=== PATIENT | female | born 1985 | race Caucasian/White ===

== ENCOUNTER 2017-05-26 18:42 | Inpatient (IN) | payer BC ==
[~2017-05-26 18:42] MED LIST: Bupivacaine 0.25% 10 ML SDV ONE
[2017-05-26] MEDS ORDERED: Ondansetron 4 MG/2 ML SDV IVPUSH PRN (18:54)
[2017-05-26] MEDS ORDERED: Nalbuphine 20 MG/1 ML Amp IVPUSH PRN (18:54)
[2017-05-26] MEDS ORDERED: Sodium Chloride 0.9% 10 ML Syringe FLUSH PRN (18:54)
[2017-05-26] MEDS ORDERED: Lidocaine 1% 50 ML MDV INJECT ONE (18:54)
[2017-05-26] MEDS: Lactated Ringers 1,000 ML IV SCH ×2 (19:00→20:03)
[2017-05-26] MEDS ORDERED: Oxytocin/Lactated Ringers 10 UNIT/1,000 ML BAG IV SCH (19:00)
--- NOTE | 2017-05-26 19:23 | PCM.LDHP ---
L&D History of Present Illness - General Date of Service: 05/26/17 Admit Problem/Dx: Patient Status Order with Admit Dx/Problem 05/26/17 18:54 Patient Status [ADT] Routine Admission Diagnosis/Problem Admission Diagnosis/Problem Labor without complication Source of Information: Patient History Limitations: Reports: No Limitations - History of Present Illness Introduction:: 31 year old at 38w4d here in active labor. Started contraction this afternoon. Presented and was 8 cm. 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 Endocrine/Metabolic History: Reports: Hyperthyroidism - Infectious Disease History Infectious Disease History: Reports: Chicken Pox H&P Review of Systems - Review of Systems: Review Of Systems: See Below General: Reports: No Symptoms HEENT: Reports: No Symptoms Pulmonary: Reports: No Symptoms Cardiovascular: Reports: No Symptoms Gastrointestinal: Reports: No Symptoms Genitourinary: Reports: No Symptoms Musculoskeletal: Reports: No Symptoms Skin: Reports: No Symptoms Psychiatric: Reports: No Symptoms Neurological: Reports: No Symptoms Hematologic/Lymphatic: Reports: No Symptoms Immunologic: Reports: No Symptoms L&D Exam - Exam Exam: See Below - Vital Signs Weight: 73.936 kg - OB Specific Contraction Intensity: Moderate to Strong Movement: Active Heart Rate (FHR) Variability: Moderate (6-25 bmp) Presentation: Vertex - Eagle Score Eagle Score Cervix Position: Anterior Eagle Score Consistency: Soft Eagle Score Effacement: >80% Eagle Score Dilation: > 5 cm Eagle Score Infant's Station: -2 Eagle Score Total: 11 - Exam General: Alert, Oriented HEENT: PERRLA, Conjunctiva Clear, EACs Clear, EOMI, Hearing Intact, Mucosa Moist & [place], Nares Patent, Normal Nasal Septum, Posterior Pharynx Clear, TMs Clear Neck: Supple, Trachea Midline Lungs: Clear to Auscultation, Normal Respiratory Effort Cardiovascular: Regular Rate, Regular Rhythm GI/Abdominal Exam: Normal Bowel Sounds, Soft, Non-Tender, No Organomegaly, No Distention, No Abnormal Bruit, No Mass, Pelvis Stable Genitourinary: Normal external exam, Normal bimanual exam Back Exam: Normal Inspection, Full Range of Motion Extremities: Normal Inspection, Normal Range of Motion, Non-Tender, No Pedal Edema, Normal Capillary Refill Skin: Warm, Dry, Intact Neurological: Cranial Nerves Intact, Reflexes Equal Bilateral Psychiatric: Alert, Normal Affect, Normal Mood Problem List Initiated/Reviewed/Updated: Yes Orders Last 24hrs: Active Orders 24 hr Category Date Time Status Patient Status [ADT] Routine ADT 05/26/17 18:54 Active Activity as Tolerated [RC] PFP Care 05/26/17 18:54 Active Communication Order [RC] ASDIRECTED Care 05/26/17 18:54 Active Heart Tones [RC] ASDIRECTED Care 05/26/17 18:55 Active Notify Provider [RC] PFP Care 05/26/17 18:54 Active Notify Provider [RC] PRN Care 05/26/17 18:54 Active Peripheral IV Care [RC] . DIRECTED Care 05/26/17 18:55 Active Pump Management, Intrathecal [RC] ASDIRECTED Care 05/26/17 18:56 Active Urinary Catheter Assessment [RC] ASDIRECTED Care 05/26/17 18:54 Active Vital Signs [RC] PER UNIT ROUTINE Care 05/26/17 18:54 Active Regular Diet [DIET] Diet 05/26/17 Dinner Active CBC WITH AUTO DIFF [HEME] Stat Lab 05/26/17 18:54 Ordered TYPE AND SCREEN [BBK] Stat Lab 05/26/17 18:54 Ordered Lactated Ringers [Ringers, Lactated] 1,000 ml Med 05/26/17 19:00 Active IV ASDIRECTED Nalbuphine [Nubain] Med 05/26/17 18:54 Active 10 mg IVPUSH Q2H PRN Ondansetron [Zofran] Med 05/26/17 18:54 Active 4 mg IVPUSH Q4H PRN Oxytocin/Lactated Ringers [Pitocin in LR 10 Units/1,000 Med 05/26/17 19:00 Active ML] 10 unit in 1,000 ml IV .CONTINUOUS Sodium Chloride 0.9% [Saline Flush] Med 05/26/17 18:54 Active 10 ml FLUSH ASDIRECTED PRN Electronic Heart Tones Ext w TOCO [WOMSER] Oth 05/26/17 18:54 Ordered Routine Electronic Heart Tones Internal [WOMSER] Per Unit Oth 05/26/17 18:54 Ordered Routine Peripheral IV Insertion Adult [OM.PC] Routine Oth 05/26/17 18:54 Ordered Resuscitation Status Routine Resus Stat 05/26/17 18:54 Ordered Medication Orders Lactated Ringer's (Ringers, Lactated) 1,000 mls @ 100 mls/hr IV ASDIRECTED SERGIO Oxytocin/Lactated Ringer's (Pitocin In Lr 10 Units/1,000 Ml) 10 unit in 1,000 mls @ 500 mls/hr IV .CONTINUOUS SERGIO PRN Reason: Protocol Nalbuphine HCl (Nubain) 10 mg IVPUSH Q2H PRN PRN Reason: Pain (moderate 4-6) Ondansetron HCl (Zofran) 4 mg IVPUSH Q4H PRN PRN Reason: Nausea/Vomiting Sodium Chloride (Saline Flush) 10 ml FLUSH ASDIRECTED PRN PRN Reason: Keep Vein Open
--- NOTE | 2017-05-26 20:13 | PCM.PREANE ---
Preanesthetic Assessment - Anesthesia/Transfusion/Family Hx Anesthesia History: Prior Anesthesia Without Reaction Family History of Anesthesia Reaction: No Transfusion History: No Prior Transfusion(s) Intubation History: Unknown - Review of Systems General: No Symptoms Pulmonary: No Symptoms Cardiovascular: No Symptoms Gastrointestinal: No Symptoms Neurological: No Symptoms Other: Reports: Thyroid Problems (Hyperparathyroidism) - Physical Assessment Respiratory Rate: 18 Vital Signs: Last Vital Signs Temp 37.2 C 05/26/17 18:54 Pulse 76 05/26/17 18:54 Resp 18 05/26/17 18:54 BP 122/79 05/26/17 18:54 Pulse Ox Height: 1.65 m Weight: 73.936 kg ASA Class: 2 Mental Status: Alert & Oriented x3 Airway Class: Mallampati = 1 Dentition: Reports: Normal Dentition Thyro-Mental Finger Breadths: 3 Mouth Opening Finger Breadths: 3 ROM/Head Extension: Full Lungs: Clear to Auscultation, Normal Respiratory Effort Cardiovascular: Regular Rate, Regular Rhythm - Lab Values: Laboratory Last Values WBC 16.25 K/mm3 (3.98-10.04) H 05/26/17 19:20 RBC 4.17 M/mm3 (3.98-5.22) 05/26/17 19:20 Hgb 13.7 gm/L (11.2-15.7) 05/26/17 19:20 Hct 39.3 % (34.1-44.9) 05/26/17 19:20 MCV 94.2 fl (79.4-94.8) 05/26/17 19:20 MCH 32.9 pg (25.6-32.2) H 05/26/17 19:20 MCHC 34.9 g/dl (32.2-35.5) 05/26/17 19:20 RDW Std Deviation 43.1 fL (36.4-46.3) 05/26/17 19:20 Plt Count 179 K/mm3 (182-369) L 05/26/17 19:20 MPV 11.0 fl (9.4-12.3) 05/26/17 19:20 Neut % (Auto) 80.1 % (34.0-71.1) H 05/26/17 19:20 Lymph % (Auto) 12.9 % (19.3-51.7) L 05/26/17 19:20 [place] % (Auto) 6.2 % (4.7-12.5) 05/26/17 19:20 Eos % (Auto) 0.3 (0.7-5.8) L 05/26/17 19:20 Baso % (Auto) 0.1 % (0.1-1.2) 05/26/17 19:20 Neut # (Auto) 13.04 K/mm3 (1.56-6.13) H 05/26/17 19:20 Lymph # (Auto) 2.09 K/mm3 (1.18-3.74) 05/26/17 19:20 [place] # (Auto) 1.00 K/mm3 (0.24-0.36) H 05/26/17 19:20 Eos # (Auto) 0.05 K/mm3 (0.04-0.36) 05/26/17 19:20 Baso # (Auto) 0.01 K/mm3 (0.01-0.08) 05/26/17 19:20 - Allergies Allergies/Adverse Reactions: Allergies Allergy/AdvReac Type Severity Reaction Status Date / Time No Known Allergies Allergy Verified 05/26/17 18:53 - Acknowledgements Anesthesia Type Planned: Spinal Pt an Appropriate Candidate for the Planned Anesthesia: Yes Alternatives and Risks of Anesthesia Discussed w Pt/Guardian: Yes Pt/Guardian Understands and Agrees with Anesthesia Plan: Yes 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 Questionnaire 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: , 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 Endocrine/Metabolic History: Reports: Hyperthyroidism - Infectious Disease History Infectious Disease History: Reports: Chicken Pox - SUBSTANCE USE Smoking Status *Q: Never Smoker Recreational Drug Use History: No - CURRENT (IN HOUSE) MEDS Current Meds: Current Medications Lactated Ringer's (Ringers, Lactated) 1,000 mls @ 100 mls/hr IV ASDIRECTED SERGIO Last Admin: 05/26/17 20:03 Dose: 999 mls/hr Oxytocin/Lactated Ringer's (Pitocin In Lr 10 Units/1,000 Ml) 10 unit in 1,000 mls @ 500 mls/hr IV .CONTINUOUS SERGIO PRN Reason: Protocol Nalbuphine HCl (Nubain) 10 mg IVPUSH Q2H PRN PRN Reason: Pain (moderate 4-6) Ondansetron HCl (Zofran) 4 mg IVPUSH Q4H PRN PRN Reason: Nausea/Vomiting Sodium Chloride (Saline Flush) 10 ml FLUSH ASDIRECTED PRN PRN Reason: Keep Vein Open Discontinued Medications Lidocaine HCl (Xylocaine 1%) 50 ml INJECT ONETIME ONE Stop: 05/26/17 18:55
[2017-05-26] MEDS ORDERED: Witch Hazel Medicated Pads 100/Jar TOP PRN (21:04)
[2017-05-26] MEDS ORDERED: Lanolin 100% Cream 7 GM Tube TOP PRN (21:04)
[2017-05-26] MEDS ORDERED: Docusate Sodium 100 MG Cap PO PRN (21:04)
[2017-05-26] MEDS ORDERED: Benzocaine/Menthol 20%-0.5% Spray 56 GM Canister TOP PRN (21:04)
[2017-05-27] MEDS: Ibuprofen 600 MG Tab PO PRN ×3 (02:24→20:14)
--- NOTE | 2017-05-27 07:07 | PCM.PNPP ---
- General Info Date of Service: 05/27/17 Subjective Update: PPD1 s/p . Doing great. Minimal bleeding. Functional Status: Reports: Pain Controlled - Review of Systems General: Reports: No Symptoms HEENT: Reports: No Symptoms Pulmonary: Reports: No Symptoms Cardiovascular: Reports: No Symptoms Gastrointestinal: Reports: No Symptoms Genitourinary: Reports: No Symptoms Musculoskeletal: Reports: No Symptoms Skin: Reports: No Symptoms Neurological: Reports: No Symptoms Psychiatric: Reports: No Symptoms - General Info Date of Service: 05/27/17 - Patient Data Vital Signs - Most Recent: Last Vital Signs Temp 37.1 C 05/27/17 03:41 Pulse 78 05/27/17 03:21 Resp 17 05/27/17 03:21 BP 121/97 H 05/27/17 03:21 Pulse Ox 98 05/27/17 03:21 Weight - Most Recent: 73.936 kg I&O - Last 24 Hours: Intake & Output 05/26/17 05/27/17 05/27/17 22:59 06:59 14:59 Intake Total 2600 Balance 2600 Lab Results - Last 24 Hours: Laboratory Results - last 24 hr 05/26/17 05/26/17 Range/Units 19:20 19:20 WBC 16.25 H (3.98-10.04) K/mm3 RBC 4.17 (3.98-5.22) M/mm3 Hgb 13.7 (11.2-15.7) gm/L Hct 39.3 (34.1-44.9) % MCV 94.2 (79.4-94.8) fl MCH 32.9 H (25.6-32.2) pg MCHC 34.9 (32.2-35.5) g/dl RDW Std Deviation 43.1 (36.4-46.3) fL Plt Count 179 L (182-369) K/mm3 MPV 11.0 (9.4-12.3) fl Neut % (Auto) 80.1 H (34.0-71.1) % Lymph % (Auto) 12.9 L (19.3-51.7) % [place] % (Auto) 6.2 (4.7-12.5) % Eos % (Auto) 0.3 L (0.7-5.8) Baso % (Auto) 0.1 (0.1-1.2) % Neut # (Auto) 13.04 H (1.56-6.13) K/mm3 Lymph # (Auto) 2.09 (1.18-3.74) K/mm3 [place] # (Auto) 1.00 H (0.24-0.36) K/mm3 Eos # (Auto) 0.05 (0.04-0.36) K/mm3 Baso # (Auto) 0.01 (0.01-0.08) K/mm3 Blood Type A POSITIVE Gel Antibody Screen Negative Med Orders - Current: Current Medications Benzocaine/Menthol (Dermoplast Pain Relief [place]) 0 gm TOP ASDIRECTED PRN PRN Reason: Perineal Comfort Measure Last Admin: 05/26/17 22:12 Dose: 1 applic Docusate Sodium (Colace) 100 mg PO BID PRN PRN Reason: Constipation Emollient Ointment (Lansinoh Hpa) 0 gm TOP ASDIRECTED PRN PRN Reason: Sore Nipples Ibuprofen (Motrin) 600 mg PO Q6H PRN PRN Reason: Mild pain or fever Last Admin: 05/27/17 02:24 Dose: 600 mg Witch Paulina (Tucks) 1 pad TOP ASDIRECTED PRN PRN Reason: Hemorrhoid pain Last Admin: 05/26/17 22:12 Dose: 1 applic Discontinued Medications Lactated Ringer's (Ringers, Lactated) 1,000 mls @ 100 mls/hr IV ASDIRECTED [facility] Last Admin: 05/26/17 20:03 Dose: 999 mls/hr Oxytocin/Lactated Ringer's (Pitocin In Lr 10 Units/1,000 Ml) 10 unit in 1,000 mls @ 500 mls/hr IV .CONTINUOUS SERGIO PRN Reason: Protocol Last Admin: 05/26/17 20:39 Dose: 500 ml/hr, 500 mls/hr Lidocaine HCl (Xylocaine 1%) 50 ml INJECT ONETIME ONE Stop: 05/26/17 18:55 Nalbuphine HCl (Nubain) 10 mg IVPUSH Q2H PRN PRN Reason: Pain (moderate 4-6) Ondansetron HCl (Zofran) 4 mg IVPUSH Q4H PRN PRN Reason: Nausea/Vomiting Sodium Chloride (Saline Flush) 10 ml FLUSH ASDIRECTED PRN PRN Reason: Keep Vein Open - Interaction Infant Disposition, : [place] in Room with Family Support Person: - Recovery Exam Fundal Tone: Firm Fundal Level: 1 Fingerbreadths Below Umbilicus Fundal Placement: Midline Lochia Amount: Small Lochia Color: Rubra/Red Perineum Description: Other (see below) Other Perinuem Description: laceration with repair Bladder Status: Voiding - Exam General: Alert, Oriented HEENT: Pupils Equal Neck: Supple Lungs: Clear to Auscultation, Normal Respiratory Effort Cardiovascular: Regular Rate, Regular Rhythm GI/Abdominal Exam: Normal Bowel Sounds, Soft, Non-Tender, No Organomegaly, No Distention, No Abnormal Bruit, No Mass, Pelvis Stable Extremities: Normal Inspection, Normal Range of Motion, Non-Tender, No Pedal Edema, Normal Capillary Refill Skin: Warm, Dry, Intact Neurological: No New Focal Deficit Psy/Mental Status: Alert, Normal Affect, Normal Mood - Problem List Review Problem List Initiated/Reviewed/Updated: Yes - My Orders Last 24 Hours: My Active Orders 05/26/17 18:54 Urinary Catheter Assessment [RC] ASDIRECTED Resuscitation Status Routine 05/26/17 18:55 Heart Tones [RC] ASDIRECTED 05/26/17 21:04 Activity as Tolerated [RC] PER UNIT ROUTINE Vital Signs [RC] 12,20,04 Benzocaine/Menthol [Dermoplast Pain Relief [place]] See Dose Instructions TOP ASDIRECTED PRN Docusate Sodium [Colace] 100 mg PO BID PRN Ibuprofen [Motrin] 600 mg PO Q6H PRN Lanolin [Lansinoh HPA] See Dose Instructions TOP ASDIRECTED PRN Witch Paulina [Tucks] 1 pad TOP ASDIRECTED PRN Assess Lochia [WOMSER] Per Unit Routine Assess Uterine Involution [WOMSER] Per Unit Routine Breast Pump [WOMSER] Per Unit Routine Heat Therapy [OM.PC] PRN Medication Administration Instruction [OM.PC] Routine Perineal Care [OM.PC] Per Unit Routine Sitz Bath [OM.PC] Per Unit Routine 05/26/17 Breakfast Regular Diet [DIET] 05/27/17 21:04 Heat Therapy [OM.PC] PRN - Assessment Assessment:: Doing great. Minimal pain. Minimal lochia. FF-2u. Probable discharge tomorrow.
--- NOTE | 2017-05-27 20:17 | PCM48HPAN ---
Post Anesthesia Note - EVALUATION WITHIN 48HRS OF ANESTHETIC Vital Signs in Normal Range: Yes Patient Participated in Evaluation: Yes Respiratory Function Stable: Yes Airway Patent: Yes Cardiovascular Function Stable: Yes Hydration Status Stable: Yes Pain Control Satisfactory: Yes Nausea and Vomiting Control Satisfactory: Yes Mental Status Recovered: Yes
--- NOTE | 2017-05-28 11:01 | PCM.DCSUM1 ---
Discharge Summary - Hospital Course Free Text/Narrative:: 31-year-old 4 para 3013 white female who presented 2 days ago in active labor. She arrived at 8 cm. Delivered shortly thereafter. Female with good Apgars. She is nursing the baby without problems. course is been unremarkable. Patient is desiring discharge. - Discharge Data Discharge Date: 05/28/17 Discharge Disposition: Home, Self-Care 01 Condition: Good - Patient Instructions Diet: Regular Diet as Tolerated (Nursing diet was increased calories and calcium as directed) Activity: As Tolerated (No intercourse or tampons until bleeding resolves) Driving: May Drive Today Showering/Bathing: May Shower (May take a bath) Notify Provider of: Fever, Increased Pain, Swelling and Redness, Nausea and/or Vomiting - Discharge Plan Home Medications: Home Meds Ibuprofen [IJD: Ibuprofen] 600 mg PO Q6H PRN tablet 05/28/17 [Rx] Referrals: Mitzy Gallegos MD [Primary Care Provider] - ([facility]) - Discharge Summary/Plan Comment DC Time >30 min.: No Discharge Summary/Plan Comment: Discharge instructions: 1. Discharge home 2. Diet, activity and follow-up discussed with patient. Recommend nursing diet with increased calories and calcium. 3. Precautions given concern increased pain, bleeding, temperature, signs/ symptoms of DVT/PE. 4. Medications per home medication was printed, discussed with and given to the patient. 5. Return to clinic-6 weeks. Diagnosis: Term -delivered Condition: Good - Patient Data Vitals - Most Recent: Last Vital Signs Temp 37.0 C 05/28/17 03:06 Pulse 71 05/28/17 03:03 Resp 16 05/28/17 03:03 BP 99/76 05/28/17 03:03 Pulse Ox 98 05/28/17 03:03 Weight - Most Recent: 73.936 kg I&O - Last 24 hours: Intake & Output 05/27/17 05/28/17 05/28/17 22:59 06:59 14:59 Intake Total 0 Balance 0 Med Orders - Current: Current Medications Benzocaine/Menthol (Dermoplast Pain Relief [place]) 0 gm TOP ASDIRECTED PRN PRN Reason: Perineal Comfort Measure Last Admin: 05/26/17 22:12 Dose: 1 applic Docusate Sodium (Colace) 100 mg PO BID PRN PRN Reason: Constipation Emollient Ointment (Lansinoh Hpa) 0 gm TOP ASDIRECTED PRN PRN Reason: Sore Nipples Ibuprofen (Motrin) 600 mg PO Q6H PRN PRN Reason: Mild pain or fever Last Admin: 05/27/17 20:14 Dose: 600 mg Witch Paulina (Tucks) 1 pad TOP ASDIRECTED PRN PRN Reason: Hemorrhoid pain Last Admin: 05/26/17 22:12 Dose: 1 applic Discontinued Medications Lactated Ringer's (Ringers, Lactated) 1,000 mls @ 100 mls/hr IV ASDIRECTED SERGIO Last Admin: 05/26/17 20:03 Dose: 999 mls/hr Oxytocin/Lactated Ringer's (Pitocin In Lr 10 Units/1,000 Ml) 10 unit in 1,000 mls @ 500 mls/hr IV .CONTINUOUS SERGIO PRN Reason: Protocol Last Admin: 05/26/17 20:39 Dose: 500 ml/hr, 500 mls/hr Lidocaine HCl (Xylocaine 1%) 50 ml INJECT ONETIME ONE Stop: 05/26/17 18:55 Last Admin: 05/27/17 13:54 Dose: Not Given Nalbuphine HCl (Nubain) 10 mg IVPUSH Q2H PRN PRN Reason: Pain (moderate 4-6) Ondansetron HCl (Zofran) 4 mg IVPUSH Q4H PRN PRN Reason: Nausea/Vomiting Sodium Chloride (Saline Flush) 10 ml FLUSH ASDIRECTED PRN PRN Reason: Keep Vein Open *Q Meaningful Use (DIS) - VTE *Q VTE Criteria *Q: - Stroke *Q Stroke Criteria *Q: - AMI *Q AMI Criteria *Q:
== END 2017-05-28 11:30 | disposition home or self-care (01) | DRG 560 ==
LOC: JD.OBCHECK 18:42 → JD.OB 18:42 → JD.OBCHECK 18:53 → JD.OB 18:54 → OBSVTOIN 20:36 → JD.OB 20:36
PROVIDERS: ADMIT Obstetrics & Gynecology; ATTEND Obstetrics & Gynecology
PROC: 10E0XZZ Delivery of Products of Conception, External Approach (ICD-10-PCS; principal; 2017-05-26)
PROC: 10907ZC Drainage of Amniotic Fluid, Therapeutic from Products of Conception, Via Natural or Artificial Opening (ICD-10-PCS; 2017-05-26)
PROC: 00HU33Z Insertion of Infusion Device into Spinal Canal, Percutaneous Approach (ICD-10-PCS; 2017-05-26)
PROC: 3E0R3BZ Introduction of Anesthetic Agent into Spinal Canal, Percutaneous Approach (ICD-10-PCS; 2017-05-26)
DX: O99.284 Endocrine, nutritional and metabolic diseases complicating childbirth (principal); E03.9 Hypothyroidism, unspecified; Z3A.39 39 weeks gestation of pregnancy; Z37.0 Single live birth
CPT/HCPCS: 36415; 59300; 59409; 85025; 86850; 86900; 86901; A9270-GY; J2590; J7120